=== PATIENT | male | born 1945 | race Caucasian/White ===

== ENCOUNTER 2018-07-19 08:31 | Day surgery (SDC) | payer OTHER | END 2018-07-19 13:10 | disposition home or self-care (01) | LOC: AMB-ENDOS 08:31 | DX: C20 Malignant neoplasm of rectum (principal) ==

== ENCOUNTER 2018-09-06 09:00 | Inpatient (IN) | payer OTHER ==
[~2018-09-06] VITALS: Ht 170.2 cm; Wt 69.9 kg
[2018-09-16] MEDS ORDERED: HYOSCYAMINE0.125 M1 SL (07:46)
[2018-09-16] MEDS ORDERED: OXYC1TAB9 PO (07:47)
[2018-09-16] MEDS ORDERED: INTESTINEX680 M1 PO (07:48)
== END 2018-09-16 14:45 | disposition home or self-care (01) | DRG 334 ==
LOC: SURH 09-12 08:30 → SURG 09-12 11:22 → O/R 09-12 11:22 → SURG 09-13 08:28
PROVIDERS: ADMIT Surgery
PROC: 07TC4ZZ Resection of Pelvis Lymphatic, Percutaneous Endoscopic Approach (ICD-10-PCS; 2018-09-12)
PROC: 0DTP4ZZ Resection of Rectum, Percutaneous Endoscopic Approach (ICD-10-PCS; principal; 2018-09-12 08:30)
DX: C20 Malignant neoplasm of rectum (principal); R73.01 Impaired fasting glucose; D50.0 Iron deficiency anemia secondary to blood loss (chronic); R59.0 Localized enlarged lymph nodes

== ENCOUNTER 2019-11-07 05:45 | Day surgery (SDC) | payer OTHER ==
[~2019-11-07 05:45] MED LIST: HYOSCYAMINE0.125 M1 SL; INTESTINEX680 M1 PO; OXYC1TAB9 PO
== END 2019-11-07 09:45 | disposition home or self-care (01) ==
LOC: AMB-ENDOS 05:45
DX: D12.4 Benign neoplasm of descending colon (principal); Z93.3 Colostomy status

== ENCOUNTER 2021-04-01 07:30 | Day surgery (SDC) | payer OTHER | END 2021-04-01 12:35 | disposition home or self-care (01) | LOC: AMB-ENDOS 07:30 | PROVIDERS: ATTEND Surgery | DX: D12.4 Benign neoplasm of descending colon (principal) ==